=== PATIENT | male | born 1955 | race Caucasian/White ===

== ENCOUNTER 2019-04-19 07:26 | Day surgery (SDC) | payer OTHER ==
[2019-04-17 10:51] VITALS: BMI 34.7
[2019-04-17 11:21] LABS: Protime INR 1.27
--- NOTE | 2019-04-17 11:35 | RAD REPORT ---
EXAM DESCRIPTION: RAD - Chest Pa And Lat (2 Views) - 04/17/2019 11:28 am CLINICAL HISTORY: pre-op cath procedure COMPARISON: Chest Pa And Lat (2 Views) dated 09/29/2017 TECHNIQUE: Frontal and lateral views of the chest were obtained. FINDINGS: The lungs are clear. Interstitial pattern matches comparison. Punctate granuloma seen in the lung new. Heart size is normal and central vasculature is within normal limits. No pleural effus ion or pneumothorax seen. No acute bony finding noted. No aortic abnormality. IMPRESSION: No acute cardiopulmonary process. No significant change comparison.
[2019-04-19] MEDS ORDERED: NA CHLORIDE 0.9% 500 ML ONE (07:36)
[2019-04-19 08:29] VITALS: TEMP 98.5
[2019-04-19] MEDS ORDERED: HEPA 1000U/500MLS 1,000 UNIT/500 ML BAG IV ONE (08:49)
[2019-04-19] MEDS ORDERED: FENTANYL CITR 100 MCG/2 ML ONE (08:49)
[2019-04-19] MEDS ORDERED: MIDAZOLAM HCL 2 MG/2 ML INJ ONE (08:49)
[2019-04-19] MEDS ORDERED: NA CHLORIDE 0.9% 0 ML IV ONE (08:50)
[2019-04-19] MEDS ORDERED: ATROPINE SULF 1 MG/10 ML SYR IV ONE (08:50)
[2019-04-19] MEDS ORDERED: MIDAZOLAM HCL 5 MG/5 ML INJ ONE (09:28)
[2019-04-19] MEDS ORDERED: ONDANSETRON 4 MG/2 ML VIAL ONE (09:33)
[2019-04-19 12:21] VITALS: BP 115/73; O2SAT 97
--- NOTE | 2019-04-19 20:31 | OP ---
Surgeon: Ok Burr MD Contract Consultant: Bolivar Eagle. The patient will be at bedrest for 2 hours after his Angio-Seal and he will go home today and he will see me in the office in the next week or 2. Patient admitted as an outpatient on 04/19/2019 to the entry level lab technician. Procedure Performed: Left heart catheterization and selective coronary arteriogram. Indication: Atrial fibrillation, positive stress test. Findings: Normal coronaries, in atrial fibrillation. Description Of Procedure: The patient had been prepped and draped in the routine sterile fashion. G iven Versed and fentanyl for sedation. A 6-Green[place] sheath introduced in the right common femoral bryant ry. Violette catheter left and right were used to select the left main and the right main respectivel y. He had perfectly normal coronaries. No stenosis, no plaquing. There were no complications. Blood Loss: 5 mL. Anesthesia: Total conscious sedation was 30 minutes. Postoperative Diagnosis: Atrial fibrillation, positive stress test, normal coronaries. Plan: Plan is for medical therapy with aspirin. No anticoagulation for now. He has very low CHADS score. NB/MODL Voice ID: [id number] Report ID: [id number]
== END 2019-04-19 12:30 | disposition home or self-care (01) ==
LOC: CCL 07:26
DX: R94.39 Abnormal result of other cardiovascular function study (principal); I48.91 Unspecified atrial fibrillation
CPT/HCPCS: 36415; 85610; 85730; 71046; 93454; C1893; C1760; J2250; J3010; J7040; J0583; J2405